=== PATIENT | female | born 1975 | race Caucasian/White ===

== ENCOUNTER → 2019-08-10 12:09 | Outpatient (BNVA) | payer BC, SELFPAY | PROVIDERS: Family Provider Nurse Practitioner Family; PCP Nurse Practitioner Family; Visit Provider Nurse Practitioner Family | DX: I10 Essential (primary) hypertension (principal); E78.5 Hyperlipidemia, unspecified; E03.9 Hypothyroidism, unspecified; F32.9 Major depressive disorder, single episode, unspecified; K21.9 Gastro-esophageal reflux disease without esophagitis | CPT/HCPCS: 80053; 80061; 84443; 85025 ==

== ENCOUNTER 2019-12-20 06:00 | Outpatient (RCR) | payer BC, SELFPAY | END 2020-01-17 23:59 | disposition home or self-care (01) | LOC: TPT 06:00 | PROVIDERS: PCP Nurse Practitioner Family; Referring Provider Nurse Practitioner Family; Visit Provider Nurse Practitioner Family | DX: M54.2 Cervicalgia (principal) | CPT/HCPCS: 97110; 97140; 97161 ==

== ENCOUNTER → 2019-12-29 08:16 | Outpatient (BNVA) | payer BC, SELFPAY | PROVIDERS: PCP Nurse Practitioner Family; Visit Provider Nurse Practitioner Family | DX: I10 Essential (primary) hypertension (principal) | CPT/HCPCS: 80048 ==

== ENCOUNTER 2020-01-18 06:00 | Outpatient (RCR) | payer BC, SELFPAY | END 2020-02-17 23:59 | disposition home or self-care (01) | LOC: TPT 06:00 | PROVIDERS: PCP Nurse Practitioner Family; Referring Provider Nurse Practitioner Family; Visit Provider Nurse Practitioner Family | DX: M54.2 Cervicalgia (principal) | CPT/HCPCS: 97110; 97140 ==

== ENCOUNTER → 2020-01-29 09:00 | Outpatient (BNVA) | payer BC, SELFPAY | PROVIDERS: PCP Nurse Practitioner Family; Visit Provider Nurse Practitioner Family | DX: Z12.39 Encounter for other screening for malignant neoplasm of breast (principal); I10 Essential (primary) hypertension; F32.9 Major depressive disorder, single episode, unspecified; E78.5 Hyperlipidemia, unspecified; E03.9 Hypothyroidism, unspecified; K21.9 Gastro-esophageal reflux disease without esophagitis; R53.83 Other fatigue; Z12.31 Encounter for screening mammogram for malignant neoplasm of breast | CPT/HCPCS: 80053; 80061; 82607; 84443; 85025 ==

== ENCOUNTER → 2020-02-07 09:28 | Outpatient (BNVA) | payer BC, SELFPAY | PROVIDERS: PCP Nurse Practitioner Family; Visit Provider Nurse Practitioner Family | DX: R73.9 Hyperglycemia, unspecified (principal); J01.00 Acute maxillary sinusitis, unspecified; R53.83 Other fatigue; R06.83 Snoring | CPT/HCPCS: 80053; 83036; 83735; 85025 ==

== ENCOUNTER 2020-03-17 11:46 | Emergency (ER) | payer BC, SELFPAY ==
[2020-03-17 11:51] VITALS: BP 132/87; PULSE 82; RESP 20; TEMP 36.2; O2SAT 93; BMI 37.8
--- NOTE | 2020-03-17 11:55 | XRR_ITS ---
PROCEDURE INFORMATION: Exam: XR Chest, 1 View Exam date and time: 03/17/2020 11:56 AM Age: 44 years old Clinical indication: Cough TECHNIQUE: Imaging protocol: XR of the chest Views: Frontal portable upright view of the chest. COMPARISON: No relevant prior studies available. FINDINGS: Lungs: Mild bilateral lateral mid lung zone and bibasilar subsegmental atelectasis/infiltrate. The pulmonary vasculature is normal. Pleural space: No pleural effusion. No pneumothorax. Heart/Mediastinum: The heart is normal in size and contour. Bones/joints: No acute abnormality identified. Organs: The gallbladder is surgically absent, with metallic clips in the gallbladder fossa. XR/XR chest 1V portable [id number] IMPRESSION: 1. Mild bilateral lateral mid lung zone and bibasilar subsegmental atelectasis/infiltrate. Pneumonitis, including viral pneumonitis, is difficult to exclude. Clinical correlation is recommended. 2. Prior cholecystectomy.
--- NOTE | 2020-03-17 12:19 | ED_ITS ---
HPI - COVID General: Chief Complaint: COVID symptoms Stated Complaint: cough,lack of energy, fever Time Seen by Provider: 03/17/20 11:50 Triage information: Has fever, cough or shortness of breath . No known COVID + exposure last 14 days History of Present Illness: HPI Narrative: Presents with cough chills fever not feeling good here lately MD complaint: has COVID symptoms Prior covid testing: no COVID 19 common symptoms: positive fever(s), chills, cough, non-productive cough, dyspnea, fatigue, body aches, loss of sense of smell and/or taste, throat pain, nasal congestion, nausea and diarrhea; negative headache(s) COVID 19 other sytmptoms: negative chest pain Onset (ago): day(s) Severity: mild Treatment prior to arrival: antibiotics and steroids COVID Results: No Data to Display Review of Systems Narrative: Patient has had symptoms for approximately 2 weeks but did not get tested due to extracurricular activities of her high school son Const: Reports: fever(s), chills, body aches and fatigue Eyes: Denies: change in vision or blurry vision ENMT: Reports: throat pain and nasal congestion Card: Denies: chest pain or dyspnea on exertion Resp: Reports: dyspnea and non-productive cough GI: Reports: nausea and diarrhea Musc: Denies: extremity pain Skin/Breast: Denies: rash Neuro: Denies: headache(s) Psych: Denies: anxiety or depression Chicho/Lymph: Denies: easy bruising PFSH ED PFSH: Medical History History of Guillain-Ragland syndrome Hyperlipidemia Hypertension Social History Smoking and tobacco status: never smoked Second hand smoke exposure: No Alcohol intake: never Lives independently: Yes Household members: spouse and children Marital status: History of recent travel: No Current gender identity: Female Physical Exam Const: COMMON NORMALS: no acute distress, average body habitus and patient oriented x3 HENMT: COMMON NORMALS: normocephalic HEAD & SCALP: normal to inspection and normocephalic FACE & SINUS: normal facial exam Eye: COMMON NORMALS: conjunctivae normal GENERAL EYE: appearance normal, both eyes and all related structures CONJUNCTIVA: Yes conjunctivae normal Neck/C-Spine: COMMON NORMALS: no JVD Chest: COMMONS NORMALS: normal inspection of the chest Resp: COMMON NORMALS: normal respiratory effort Cardio: COMMON NORMALS: no JVD GI: INSPECTION: Yes normal to inspection Extremity: COMMON NORMALS: normal to inspection and full ROM Neuro: COMMON NORMALS: patient oriented x3 Course Vital Signs: Vital signs: Vital Signs Temperature 97.2 F L 03/17/20 11:51 Pulse Rate 82 03/17/20 11:51 Respiratory Rate 20 H 03/17/20 11:51 Blood Pressure 132/87 03/17/20 11:51 Pulse Oximetry 93 03/17/20 11:51 MDM - COVID COVID Results: No Data to Display Discharge Plan Discharge Prescriptions: No Action citalopram 20 mg tablet 20 mg PO DAILY 30 Days Qty: 30 RF: 5 fenofibrate 160 mg tablet 160 mg PO DAILY 30 Days Qty: 30 RF: 5 hydrochlorothiazide 25 mg tablet 25 mg PO QAM Qty: 30 RF: 5 levothyroxine 75 mcg tablet 75 mcg PO DAILY 30 Days Qty: 30 RF: 5 omeprazole 20 mg capsule,delayed release(DR/EC) 20 mg PO DAILY 30 Days Qty: 30 RF: 5 cetirizine [Zyrtec] 10 mg tablet 10 mg PO DAILY Qty: 30 RF: 2 fluticasone propionate [Flonase Allergy Relief] 50 mcg/actuation spray,suspension 1 spray INTRANASAL DAILY Qty: 15.8 RF: 1 Coding Level of Care Code ED Geriatric Physical Therapist for Rosalia Inman
[2020-03-17 12:31] VITALS: O2SAT 94
[2020-03-17 12:36] VITALS: BP 123/82; RESP 18; O2SAT 94
[2020-03-18 14:44] LABS: Quest SARS-CoV-2 RNA DETECTED (NOT DETECTED)
== END 2020-03-17 13:05 | disposition home or self-care (01) ==
PROVIDERS: Emergency Provider Nurse Practitioner Family; PCP Nurse Practitioner Family
DX: U07.1 COVID-19 (principal); R50.9 Fever, unspecified; R05 Cough; R06.02 Shortness of breath; I10 Essential (primary) hypertension; E78.5 Hyperlipidemia, unspecified
CPT/HCPCS: 12345; 71045; 87635; 99281; 99283

== ENCOUNTER 2020-04-22 14:44 | Outpatient (CLI) | payer OTHER, SELFPAY ==
--- NOTE | 2020-04-22 15:00 | MM_ITS ---
WS: [id number] BILATERAL SCREENING DIGITAL MAMMOGRAM WITH CAD HISTORY: screening mammo COMPARISON: None available. Bilateral CC and MLO views submitted. Computer aided detection analyzed. Breast composition: There are scattered areas of fibroglandular density. No suspicious masses, microc alcifications or architectural distortion. Benign scattered calcifications in each breast. MM/[place] [id number] IMPRESSION: BI-RADS: 2-Benign FOLLOW UP: 1 Year Follow-up
== END 2020-04-22 14:45 | disposition home or self-care (01) ==
LOC: RADSHAW 14:50
PROVIDERS: PCP Nurse Practitioner Family; Visit Provider Nurse Practitioner Family
DX: Z12.31 Encounter for screening mammogram for malignant neoplasm of breast (principal)
CPT/HCPCS: 77067

== ENCOUNTER → 2020-05-28 11:42 | Outpatient (BNVA) | payer OTHER, SELFPAY | PROVIDERS: PCP Nurse Practitioner Family; Referring Provider Nurse Practitioner Family; Visit Provider Specialist | DX: G43.711 Chronic migraine without aura, intractable, with status migrainosus (principal); F07.81 Postconcussional syndrome | CPT/HCPCS: 99204 ==

== ENCOUNTER 2020-06-17 12:00 | Outpatient (CLI) | payer OTHER, SELFPAY | END 2020-06-19 12:01 | disposition home or self-care (01) | LOC: SLEEP 07-03 15:57 | PROVIDERS: PCP Nurse Practitioner Family; Visit Provider Nurse Practitioner Family | DX: G47.10 Hypersomnia, unspecified (principal); R06.83 Snoring; R53.83 Other fatigue; G47.33 Obstructive sleep apnea (adult) (pediatric) | CPT/HCPCS: G0399 ==

== ENCOUNTER 2020-06-20 12:51 | Outpatient (CLI) | payer OTHER, SELFPAY ==
--- NOTE | 2020-06-20 13:00 | MR_ITS ---
WS: [id number] MRI BRAIN WITHOUT CONTRAST HISTORY: G43.711 - Chronic migraine without aura, intractable, with status migrainosus COMPARISON: 07/26/2008 TECHNIQUE: Diffusion imaging, multiplanar T1, T2 and FLAIR imaging obtained. No evidence for acute infarct or hemorrhage. Jones-white matter differentiation is normal. No remote or acute infarcts are volume loss. Ventricles and extra-axial spaces are normal. No inferior displacement of cerebellar tonsils. The sella turcica and pituitary gland are unremarkabl e. Posterior fossa is also unremarkable. Dural venous sinuses and [place] of [place] demonstrate no abnormality on this unenhanced studies. Paranasal sinuses: Clear. Mastoid air cells: Normal. Calvarium and scalp: Intact. MR/MR head wo con* [id number] IMPRESSION: 1. Unremarkable noncontrast MRI brain.
== END 2020-06-20 12:52 | disposition home or self-care (01) ==
LOC: RADSHAW 12:52
PROVIDERS: PCP Nurse Practitioner Family; Visit Provider Specialist
DX: G43.711 Chronic migraine without aura, intractable, with status migrainosus (principal)
CPT/HCPCS: 70551

== ENCOUNTER → 2020-09-19 13:39 | Outpatient (BNVA) | payer OTHER, SELFPAY | PROVIDERS: PCP Nurse Practitioner Family; Visit Provider Specialist | DX: G43.709 Chronic migraine without aura, not intractable, without status migrainosus (principal) | CPT/HCPCS: 99213; 99214 ==

== ENCOUNTER 2020-10-03 15:05 | Outpatient (CLI) | payer OTHER, SELFPAY ==
--- NOTE | 2020-10-03 15:21 | USCV_ITS ---
Halina Canales Age: 44 Gender: F : 1975 Exam Date: 10/03/2020 15:29 Ordering Phys: Marianne Kirk INSECTICIDE SUPERVISOR Technologist: Dia Vickers Exam Location: [facility] [place] Indication: PAIN IN LT CALF HISTORY: Pain in lt calf PROCEDURES: Venous duplex imaging was performed in only the left lower extremity. The following venous structures were evaluated: common femoral vein, profunda vein, proximal portion of the greater saphenous vein, superficial femoral vein, and the popliteal vein. In addition, the posterior tibial and peroneal trunk were evaluated. Serial compression, augmentation maneuvers, and spectral Doppler flow evaluation were performed. FINDINGS: Normal 2-D Doppler and augmentation and compressibility throughout the lower extremity venous structures. Additional imaging through the proximal calf veins also reveals no thrombus. Limited evaluation of the greater saphenous vein is patent with no thrombus.. CONCLUSIONS No evidence of left lower extremity DVT. Lebron Haro MD (Electronically Signed) Final Date: 03 October 2020 17:34 S
== END 2020-10-03 15:06 | disposition home or self-care (01) ==
LOC: RAD 15:10
PROVIDERS: PCP Nurse Practitioner Family; Visit Provider Nurse Practitioner Family
DX: M79.662 Pain in left lower leg (principal)
CPT/HCPCS: 93971

== ENCOUNTER → 2020-11-20 09:32 | Outpatient (BNVA) | payer OTHER, MEDICAID, SELFPAY | PROVIDERS: PCP Nurse Practitioner Family; Visit Provider Nurse Practitioner Family | DX: M25.522 Pain in left elbow (principal); M25.429 Effusion, unspecified elbow; M25.621 Stiffness of right elbow, not elsewhere classified; M25.421 Effusion, right elbow; M77.8 Other enthesopathies, not elsewhere classified | CPT/HCPCS: 73080 ==

== ENCOUNTER → 2020-11-27 09:19 | Outpatient (BNVA) | payer OTHER, SELFPAY | PROVIDERS: PCP Nurse Practitioner Family; Visit Provider Nurse Practitioner Family | DX: R53.83 Other fatigue (principal); I10 Essential (primary) hypertension; R73.9 Hyperglycemia, unspecified; E78.5 Hyperlipidemia, unspecified; E03.9 Hypothyroidism, unspecified; G47.33 Obstructive sleep apnea (adult) (pediatric); F32.9 Major depressive disorder, single episode, unspecified; K21.9 Gastro-esophageal reflux disease without esophagitis; D64.9 Anemia, unspecified | CPT/HCPCS: 80053; 80061; 82306; 82607; 82728; 82746; 83036; 83550; 83721; 84443; 85025 ==

== ENCOUNTER → 2020-12-09 09:54 | Outpatient (BNVA) | payer OTHER, SELFPAY | PROVIDERS: PCP Nurse Practitioner Family; Visit Provider Nurse Practitioner Family | DX: D64.9 Anemia, unspecified (principal); E78.5 Hyperlipidemia, unspecified; E11.65 Type 2 diabetes mellitus with hyperglycemia; E55.9 Vitamin D deficiency, unspecified; E53.8 Deficiency of other specified B group vitamins; D50.9 Iron deficiency anemia, unspecified | CPT/HCPCS: 85025 ==

== ENCOUNTER 2020-12-10 15:40 | Outpatient (CLI) | payer OTHER, MEDICAID, SELFPAY ==
--- NOTE | 2020-12-10 16:00 | MR_ITS ---
WS: [id number] MRI OF THE RIGHT ELBOW WITHOUT GADOLINIUM ENHANCEMENT. INDICATION: Right elbow pain for 3 weeks TECHNIQUE: Axial T1, axial T2, coronal T1, coronal PD, coronal STIR, sagittal PD fat sat, 3-D FSPGR FINDINGS: Distal humerus is normal in appearance. Normal radial head and neck. Incidental fatty marro w changes in the proximal radius. Normal trochlea and olecranon. Normal olecranon fossa. Thickening with edema involving the common extensor tendon origin with fluid superficial and deep to the tendon. Associated edema at the common extensor tendon origin. Findings compatible extensor tendi nopathy (lateral epicondylitis). Radial collateral ligament appears intact. Normal appearing common f lexor tendon. Normal distal biceps tendon. MR/MR elbow RT wo con* [id number] IMPRESSION: 1. Thickening of the common extensor tendon with a small amount of fluid and e bouchra compatible with extensor tendinopathy. Radial collateral ligament appears intact. 2. Normal common flexor tendon. 3. Distal humerus is normal in appearance. No acute fractures. 4. Normal radial head and neck.
== END 2020-12-10 15:41 | disposition home or self-care (01) ==
LOC: RADSHAW 15:44
PROVIDERS: PCP Nurse Practitioner Family; Visit Provider Nurse Practitioner Family
DX: M25.521 Pain in right elbow (principal); M79.89 Other specified soft tissue disorders
CPT/HCPCS: 73221

== ENCOUNTER → 2020-12-16 15:20 | Outpatient (BNVA) | payer OTHER, SELFPAY | PROVIDERS: PCP Nurse Practitioner Family; Visit Provider Nurse Practitioner Family | DX: D50.9 Iron deficiency anemia, unspecified (principal) | CPT/HCPCS: 82270 ==

== ENCOUNTER → 2021-03-24 09:36 | Outpatient (BNVA) | payer OTHER, MEDICAID, SELFPAY | PROVIDERS: PCP Nurse Practitioner Family; Visit Provider Specialist | DX: G43.809 Other migraine, not intractable, without status migrainosus (principal) | CPT/HCPCS: 99213 ==

== ENCOUNTER → 2021-05-28 09:49 | Outpatient (BNVA) | payer OTHER, MEDICAID, SELFPAY | PROVIDERS: PCP Nurse Practitioner Family; Visit Provider Nurse Practitioner Family | DX: I10 Essential (primary) hypertension (principal); E55.9 Vitamin D deficiency, unspecified; E11.65 Type 2 diabetes mellitus with hyperglycemia; Z12.31 Encounter for screening mammogram for malignant neoplasm of breast; E53.8 Deficiency of other specified B group vitamins; F32.9 Major depressive disorder, single episode, unspecified; E03.9 Hypothyroidism, unspecified; K21.9 Gastro-esophageal reflux disease without esophagitis; E78.5 Hyperlipidemia, unspecified; B37.3 Candidiasis of vulva and vagina | CPT/HCPCS: 80053; 80061; 81003; 82306; 82607; 83036; 83721; 84443; 85025 ==

== ENCOUNTER → 2021-06-16 08:32 | Outpatient (BNVA) | payer OTHER, MEDICAID, SELFPAY | PROVIDERS: PCP Nurse Practitioner Family; Visit Provider Nurse Practitioner Family | DX: E87.1 Hypo-osmolality and hyponatremia (principal) | CPT/HCPCS: 80048 ==

== ENCOUNTER → 2021-08-18 10:22 | Outpatient (BNVA) | payer OTHER, SELFPAY | PROVIDERS: PCP Nurse Practitioner Family; Visit Provider Nurse Practitioner Family | DX: R05.9 Cough, unspecified (principal); J40 Bronchitis, not specified as acute or chronic; J32.0 Chronic maxillary sinusitis; Z13.9 Encounter for screening, unspecified; Z11.52 Encounter for screening for COVID-19 | CPT/HCPCS: 87635 ==

== ENCOUNTER → 2021-08-26 12:01 | Outpatient (BNVA) | payer OTHER, MEDICAID, SELFPAY | PROVIDERS: PCP Nurse Practitioner Family; Referring Provider Nurse Practitioner Family; Visit Provider Nurse Practitioner Women's Health | DX: N93.9 Abnormal uterine and vaginal bleeding, unspecified (principal); Z12.4 Encounter for screening for malignant neoplasm of cervix; N39.3 Stress incontinence (female) (male) | CPT/HCPCS: 84443; 85025; 87624 ==

== ENCOUNTER → 2021-10-08 11:30 | Outpatient (BNVA) | payer OTHER, MEDICAID, SELFPAY | PROVIDERS: PCP Nurse Practitioner Family; Visit Provider Nurse Practitioner Family | DX: E11.9 Type 2 diabetes mellitus without complications (principal); E03.9 Hypothyroidism, unspecified; E55.9 Vitamin D deficiency, unspecified; K21.9 Gastro-esophageal reflux disease without esophagitis; F32.9 Major depressive disorder, single episode, unspecified; I10 Essential (primary) hypertension; E78.5 Hyperlipidemia, unspecified; M54.42 Lumbago with sciatica, left side; G89.29 Other chronic pain; M25.551 Pain in right hip | CPT/HCPCS: 80053; 80061; 83036; 84443 ==

== ENCOUNTER 2021-12-18 07:44 | Outpatient (CLI) | payer OTHER, MEDICAID, SELFPAY ==
--- NOTE | 2021-12-18 07:51 | MM_ITS ---
WS: [id number] VIEWS: MLO and CC views both breasts. 3D digital tomosynthesis is also included in this exam. Comparison made with prior exam of 04/22/2020. Findings: There was no sign of mass, architectural distortion or suspicious calcification in either breast. Sc attered fibroglandular densities MM/[place] [id number] Impression: BI-RADS: 2-Benign FOLLOW-UP: 1 Year Follow-up This mammogram was also analyzed by the Computer Aided Detection System R2 Imag e Assistant Director Of Public Works.
== END 2021-12-18 07:45 | disposition home or self-care (01) ==
LOC: RAD 07:46
PROVIDERS: PCP Nurse Practitioner Family; Visit Provider Nurse Practitioner Family
DX: Z12.31 Encounter for screening mammogram for malignant neoplasm of breast (principal)
CPT/HCPCS: 77063; 77067

== ENCOUNTER → 2022-04-14 12:32 | Outpatient (BNVA) | payer OTHER, MEDICAID, SELFPAY | PROVIDERS: PCP Nurse Practitioner Family; Visit Provider Nurse Practitioner Family | DX: E55.9 Vitamin D deficiency, unspecified (principal); E11.9 Type 2 diabetes mellitus without complications; E03.9 Hypothyroidism, unspecified; I10 Essential (primary) hypertension; K21.9 Gastro-esophageal reflux disease without esophagitis; E53.8 Deficiency of other specified B group vitamins; E78.5 Hyperlipidemia, unspecified | CPT/HCPCS: 80053; 80061; 82306; 83036; 84443 ==

== ENCOUNTER → 2022-07-16 08:49 | Outpatient (BNVA) | payer OTHER, MEDICAID, SELFPAY | PROVIDERS: PCP Nurse Practitioner Family; Visit Provider Nurse Practitioner Family | DX: J32.0 Chronic maxillary sinusitis (principal); E11.9 Type 2 diabetes mellitus without complications; K21.9 Gastro-esophageal reflux disease without esophagitis; E03.9 Hypothyroidism, unspecified; E78.5 Hyperlipidemia, unspecified; I10 Essential (primary) hypertension; J30.2 Other seasonal allergic rhinitis; R05.9 Cough, unspecified; E11.65 Type 2 diabetes mellitus with hyperglycemia | CPT/HCPCS: 80053; 80061; 83036 ==

== ENCOUNTER → 2022-12-10 16:36 | Outpatient (BNVA) | payer MEDICAID, SELFPAY | PROVIDERS: PCP Nurse Practitioner Family; Visit Provider Nurse Practitioner Family | DX: E11.9 Type 2 diabetes mellitus without complications (principal); E78.5 Hyperlipidemia, unspecified; E03.9 Hypothyroidism, unspecified; I10 Essential (primary) hypertension; K21.9 Gastro-esophageal reflux disease without esophagitis | CPT/HCPCS: 80053; 80061; 83036 ==

== ENCOUNTER → 2023-01-26 10:28 | Outpatient (BNVA) | payer MEDICAID, SELFPAY | PROVIDERS: PCP Nurse Practitioner Family; Referring Provider Nurse Practitioner Family; Visit Provider Specialist | DX: G31.84 Mild cognitive impairment of uncertain or unknown etiology (principal); R29.90 Unspecified symptoms and signs involving the nervous system; G43.711 Chronic migraine without aura, intractable, with status migrainosus | CPT/HCPCS: 0346U; 36415; 82542; 82607; 82746 ==

== ENCOUNTER 2023-02-23 07:35 | Outpatient (CLI) | payer MEDICAID, SELFPAY ==
--- NOTE | 2023-02-23 08:00 | MR_ITS ---
WS: [id number] MRI HEAD WITHOUT CONTRAST TECHNIQUE: Sagittal T1, T2 axial, T2 axial FLAIR, axial and coronal T1 images, axial susceptibility w eighted imaging, axial diffusion weighted images, and coronal T2 images were obtained. CLINICAL INFORMATION: G31.84 - Mild cognitive impairment of uncertain or unknow... COMPARISON: 06/20/2020 MRI FINDINGS: No evidence of restricted diffusion to suggest acute ischemia. Ventricular system and basilar cistern s are patent. No suspicious intracranial signal normalities. Normal ontiveros-white differentiation. Frieda l posterior fossa. Normal vascular flow voids at the skull base. No extra-axial fluid collections. Mi ld mucosal thickening of the paranasal sinuses. Mastoid air cells are well aerated. No hemosiderin on the susceptibly weighted images. Normal optic chiasm and pituitary infundibulum. Temporal lobes and hippocampal formations are normal in appearance. IMPRESSION: 1. No evidence of restricted diffusion to suggest acute ischemia. 2. No suspicious intracranial signal normalities. 3. No hemosiderin on the susceptibly weighted images. 4. No other suspicious findings. No significant changes compared to previous
== END 2023-02-23 07:36 | disposition home or self-care (01) ==
LOC: RAD 07:35
PROVIDERS: PCP Nurse Practitioner Family; Visit Provider Specialist
DX: G31.84 Mild cognitive impairment of uncertain or unknown etiology (principal)
CPT/HCPCS: 70551

== ENCOUNTER → 2023-03-15 11:50 | Outpatient (BNVA) | payer MEDICAID, SELFPAY | PROVIDERS: PCP Nurse Practitioner Family; Visit Provider Nurse Practitioner Family | DX: E03.9 Hypothyroidism, unspecified (principal); I10 Essential (primary) hypertension; F32.9 Major depressive disorder, single episode, unspecified; E11.9 Type 2 diabetes mellitus without complications; E78.5 Hyperlipidemia, unspecified; K21.9 Gastro-esophageal reflux disease without esophagitis | CPT/HCPCS: 80053; 80061; 83036; 84443 ==

== ENCOUNTER → 2024-01-03 14:41 | Outpatient (BNVA) | payer MEDICAID, SELFPAY | PROVIDERS: PCP Nurse Practitioner Family; Visit Provider Nurse Practitioner Family | DX: I10 Essential (primary) hypertension (principal); E78.5 Hyperlipidemia, unspecified; E11.65 Type 2 diabetes mellitus with hyperglycemia; E03.9 Hypothyroidism, unspecified | CPT/HCPCS: 80053; 80061; 83036; 84443; 85025 ==

== ENCOUNTER → 2024-01-31 15:03 | Outpatient (BNVA) | payer MEDICAID, SELFPAY | PROVIDERS: Visit Provider Nurse Practitioner Family | DX: R50.9 Fever, unspecified (principal) | CPT/HCPCS: 87400; 87426 ==

== ENCOUNTER 2024-02-08 13:50 | Outpatient (CLI) | payer MEDICAID, SELFPAY | END 2024-02-08 13:51 | disposition home or self-care (01) | LOC: SLEEP 13:52 | PROVIDERS: PCP Nurse Practitioner Family; Visit Provider Nurse Practitioner Family | DX: G47.33 Obstructive sleep apnea (adult) (pediatric) (principal); R63.4 Abnormal weight loss | CPT/HCPCS: G0399 ==

== ENCOUNTER → 2024-02-11 16:08 | Outpatient (BNVA) | payer MEDICAID, SELFPAY | PROVIDERS: Visit Provider Nurse Practitioner Family | DX: N39.498 Other specified urinary incontinence (principal) | CPT/HCPCS: 81000 ==

== ENCOUNTER → 2024-02-15 14:35 | Outpatient (BNVA) | payer MEDICAID, SELFPAY | PROVIDERS: Visit Provider Specialist | DX: G30.9 Alzheimer's disease, unspecified; F02.80 Dementia in other diseases classified elsewhere, unspecified severity, without behavioral disturbance, psychotic disturbance, mood disturbance, and anxiety; F32.9 Major depressive disorder, single episode, unspecified; R29.90 Unspecified symptoms and signs involving the nervous system; G47.33 Obstructive sleep apnea (adult) (pediatric) | CPT/HCPCS: 96116; 99214 ==

== ENCOUNTER → 2024-04-21 12:01 | Outpatient (BNVA) | payer MEDICAID, SELFPAY | PROVIDERS: PCP Nurse Practitioner Family; Visit Provider Nurse Practitioner Family | DX: E11.65 Type 2 diabetes mellitus with hyperglycemia (principal) | CPT/HCPCS: 80053; 80061; 82306; 82607; 83036; 83735; 84439; 84443; 85025 ==

== ENCOUNTER 2024-04-27 12:45 | Outpatient (CLI) | payer MEDICAID, SELFPAY ==
--- NOTE | 2024-04-27 12:45 | USCV_ITS ---
Halina Canales Age: 48 Gender: F : 1975 Exam Date: 04/27/2024 12:57 Ordering Phys: Marianne Kirk CLINICAL REHABILITATION AIDE Technologist: R Exam Location: [facility] [place]_ Indication: pain HISTORY: Lower extremity pain. PROCEDURES: Venous duplex imaging was performed in only the left lower extremity. The following venous structures were evaluated: common femoral vein, profunda vein, proximal portion of the greater saphenous vein, superficial femoral vein, and the popliteal vein. In addition, the posterior tibial and peroneal trunk were evaluated. FINDINGS: Normal 2-D Doppler and augmentation and compressibility throughout the lower extremity venous structures. Additional imaging through the proximal calf veins also reveals no thrombus. Limited evaluation of the greater saphenous vein is patent with no thrombus. CONCLUSIONS No DVT left lower extremity. Dr. Rena Mccann DO (Electronically Signed) Final Date: 27 April 2024 14:42 S
== END 2024-04-27 12:50 | disposition home or self-care (01) ==
PROVIDERS: PCP Nurse Practitioner Family; Visit Provider Nurse Practitioner Family
DX: M79.662 Pain in left lower leg (principal)
CPT/HCPCS: 93971

== ENCOUNTER 2024-05-16 08:39 | Outpatient (CLI) | payer MEDICAID, SELFPAY ==
--- NOTE | 2024-05-16 09:00 | MM_ITS ---
WS: [id number] VIEWS: MLO and CC views both breasts. 3D digital tomosynthesis is also included in this exam. Comparison made with prior exam of 04/22/2020, 12/18/2021.. Findings: There are scattered areas of fibroglandular density. No sign of suspicious mass, tumor calcification or architectural distortion. MM/MM scr BI tomosynthesis [id number] Impression: BI-RADS: 2 - Benign FOLLOW-UP: 1 Year Follow-up This mammogram was also analyzed by the Computer Aided Detection System R2 Imag e Nutrition Consultant.
== END 2024-05-16 08:40 | disposition home or self-care (01) ==
LOC: RAD 08:40
PROVIDERS: PCP Nurse Practitioner Family; Visit Provider Nurse Practitioner Family
DX: Z12.31 Encounter for screening mammogram for malignant neoplasm of breast (principal); R92.323 Mammographic fibroglandular density, bilateral breasts
CPT/HCPCS: 77063; 77067

== ENCOUNTER → 2024-06-30 11:26 | Outpatient (BNVA) | payer MEDICAID, SELFPAY | PROVIDERS: PCP Nurse Practitioner Family; Visit Provider Nurse Practitioner Family | DX: I10 Essential (primary) hypertension (principal); E11.65 Type 2 diabetes mellitus with hyperglycemia; D50.9 Iron deficiency anemia, unspecified | CPT/HCPCS: 80053; 82306; 82607; 82746; 83550; 83735; 84443; 85025; 86618; 86666; 86757 ==

== ENCOUNTER 2024-07-25 14:59 | Outpatient (CLI) | payer MEDICAID, SELFPAY ==
--- NOTE | 2024-07-25 15:30 | USR_ITS ---
PROCEDURE INFORMATION: Exam: US Pelvis Transabdominal, Complete, and US Pelvis Transvaginal, Non-obstetric Exam date and time: 07/25/2024 3:29 PM Age: 48 years old Clinical indication: Other: Vaginal dryness; Additional info: N95.1 - menopausal and female climacteric states TECHNIQUE: Imaging protocol: Real-time complete transabdominal and transvaginal pelvic ultrasound (non-obstetric) with image documentation. Transvaginal imaging was used for better evaluation of the endometrium, adnexa, and/or cervix. COMPARISON: CT kidney stone [id number] 07/25/2017 1:33 PM FINDINGS: Uterus: Uterus is somewhat heterogeneous and enlarged measuring 7.4 x 9.6 x 6.0 cm. Normal endometrial thickness at 2 mm. No endometrial defect. Small hypoechoic exophytic lesion off the left posterolateral aspect of the uterus suggests a fibroid measuring 1.8 cm. Right ovary/adnexa: Right ovary is not visualized. Left ovary/adnexa: Left ovary is enlarged measuring 3.9 x 2.5 x 4.5 cm. Numerous cystic structures within the left ovary consistent with cysts or follicles. Largest measures 1.8 cm. Low-level internal echoes are seen in many of the lesions. Intraperitoneal space: No free pelvic fluid. Urinary bladder: Normal. US/US pelv w/transvag [id number] IMPRESSION: 1. Enlarged and somewhat heterogeneous uterus. 2. Probable small subserosal uterine fibroid. 3. Enlarged left ovary containing multiple simple and complex cysts or follicles. Consider follow-up ultrasound in 8-12 weeks.
== END 2024-07-25 15:00 | disposition home or self-care (01) ==
LOC: RAD 15:00
PROVIDERS: PCP Nurse Practitioner Family; Visit Provider Nurse Practitioner Family
DX: N95.1 Menopausal and female climacteric states (principal); N85.2 Hypertrophy of uterus; R93.89 Abnormal findings on diagnostic imaging of other specified body structures; N83.8 Other noninflammatory disorders of ovary, fallopian tube and broad ligament
CPT/HCPCS: 76830; 76856

== ENCOUNTER 2024-09-08 11:50 | Outpatient (CLI) | payer MEDICAID, SELFPAY ==
--- NOTE | 2024-09-08 12:45 | US_ITS ---
WS: [id number] US pelv w/transvag [id number] HISTORY: N85.2 - Hypertrophy of uterus COMPARISON: None available. Uterus: 13.1 cm x 7.3 cm x 6.1 cm. Enlarged anteverted uterus. There is a very dense appearing uterus with heterogeneity and nodularity. There is a large echogenic mass with central fluid measuring 5.4 x 4.1 cm in the central uterus. Portion of the endometrium looks like it's being displaced. I suspect this is a large fibroid. Endometrium: 1.0 cm. Poorly visualized entire endometrium. Right ovary: Not identified. No adnexal mass.. Left ovary: 4.6 cm x 4.0 cm x 3.2 cm. Numerous small follicles. Largest follicle measures 2.5 cm. No free fluid in the cul-de-sac. US/US pelv w/transvag [id number] IMPRESSION: 1. Ultrasound evaluation of the uterus is limited. 2. Enlarged uterus with dense fibrotic appearing masses most likely these are fibroids but a normal endometrium cannot be identified is in its entirety. A jiménez spect the endometrium is being displaced by fibroids. Largest fibroid in the ce ntral uterus measures 5.4 x 4.1 cm. Recommend surgical evaluation by HAZARDOUS WASTE TECHNICIAN. 3. Numerous small LEFT ovarian follicles. 4. RIGHT ovary not identified.
== END 2024-09-08 11:51 | disposition home or self-care (01) ==
PROVIDERS: PCP Nurse Practitioner Family; Visit Provider Nurse Practitioner Family
DX: N85.2 Hypertrophy of uterus (principal); R93.89 Abnormal findings on diagnostic imaging of other specified body structures
CPT/HCPCS: 76830; 76856

== ENCOUNTER 2024-11-02 05:53 | Day surgery (SDC) | payer MEDICAID, SELFPAY ==
[2024-11-02] VITALS (10 sets, daily range): BP systolic 107–134; BP diastolic 74–84; PULSE 54–85; RESP 12–18; TEMP 36.1–36.9; O2SAT 94–98
--- NOTE | 2024-11-02 02:47 | W.PM.OPSFHP ---
Same Day Surgery H&P Indication for Procedure/HPI DATE OF PROCEDURE: November 02, 2024 CHIEF COMPLAINT/INDICATIONFOR SURGICAL PROCEDURE: abnormal uterine bleeding PREOP DIAGNOSIS: abnormal uterine bleeding PLANNED PROCEDURE: Operation Date: 11/02/24 07:00 Proposed Procedures p Hysteroscopy Hysteroscopy w/ Endometrial Sampling(Not Applicable) - Alfredito Monteiro MD s Poylpectomy endometrial(Not Applicable) - Alfredito Monteiro MD s Excision Tissue Cervix Loop Electrosurgical Excision Procedure (LEEP)(Not Applicable) - Alfredito Monteiro MD Medications/Allergies* Home Medications ?Medication ?Instructions ?Recorded ?Confirmed ?Type citalopram 20 mg tablet 20 mg PO DAILY 10/30/24 11/01/24 History dulaglutide 0.75 mg/0.5 mL 0.75 mg SUBCUT .WEEK 10/30/24 11/01/24 History subcutaneous pen injector (Trulicity) hydrochlorothiazide 25 mg tablet 25 mg PO DAILY 10/30/24 11/01/24 History levothyroxine 100 mcg tablet 100 mcg PO DAILY 10/30/24 11/01/24 History sumatriptan succinate 100 mg 100 mg PO DIRECTED 10/30/24 11/01/24 History tablet (Imitrex) Allergies/Adverse Reactions Allergy/AdvReac Type Severity Reaction Status Date / Time No Known Allergies Allergy Verified 11/01/24 14:41 Pertinent History/Comorbid Conditions* Medical History (Updated 10/08/24 @ 01:12 by Alfredito Monteiro MD) No pertinent past medical history neghx:dvt/pe PCP: Caroline Kirk Chronic low back pain with left-sided sciatica Iron deficiency anemia Vitamin B12 deficiency Vitamin D deficiency Type 2 diabetes mellitus Tendinitis of right elbow BRIDGER (obstructive sleep apnea) GERD (gastroesophageal reflux disease) Depression History of Guillain-Lansing syndrome Hypothyroid Hypertension Hyperlipidemia Surgical History (Updated 08/26/21 @ 11:16 by Cynthia Hernandez APN, LOPEZ) Hx of section x2 01/06/2002, Cephalopelvic disproportion, Arrest of descent. Performed by Dr. Jerald Jimenez [facility] in [place], [place]. 07/17/2008 Repeat section. Performed by Dr. Jerald Jimenez at [facility] in [place], [place] Hx of lithotripsy (~06/14/06) Right renal calculus. Performed by Dr. Dhillon at [facility] in [place], [place]. Hx of cholecystectomy (~12/19/09) Laparoscopic. Performed by Dr. Jensen Goldberg at [facility] in [place], [place]. Family History (Updated 08/26/21 @ 10:55 by Torri Hernandez) Heart disease Father Hypertension Grandmother Maternal Grandfather Maternal Denies family history of Colon cancer Ovarian cancer Diabetes Hypercholesteremia Breast cancer Uterine cancer Thyroid disease Stroke Social History Smoking and tobacco/nicotine status: never used tobacco/nicotine Substance/Drug Use: never Pertinent Exam Findings alert, oriented x 3, clear to auscultation bilaterally and regular rate & rhythm Recommendations Surgery/Procedure today Coding Level of Care Code Acute Code for Chg Fwd
--- NOTE | 2024-11-02 06:12 | P.ANESASSM_ITS ---
Pre-Anesthetic Assessment Height/Weight: Height 5 ft 4.5 in Preop Diagnosis: abnormal uterine bleeding Operation Date: 11/02/24 07:00 Proposed Procedures p Hysteroscopy Hysteroscopy w/ Endometrial Sampling(Not Applicable) - Alfredito Monteiro MD s Poylpectomy endometrial(Not Applicable) - Alfredito Monteiro MD s Excision Tissue Cervix Loop Electrosurgical Excision Procedure (LEEP)(Not Applicable) - Alfredito Monteiro MD Was Beta Cheryl taken within 24 hours: N/A Was Clonidine taken within 24 hours: N/A Social No alcohol and No tobacco Exam alert, oriented x 3, clear to auscultation bilaterally and regular rate & rhythm Airway Submandibular: within normal limits Cervical ROM: within normal limits Mallampati: Class III Dentition: full Anesthetic Plan ASA status: 3 Anesthesia: General Other: No prior issues with anesthesia NPO since yesterday evening Patient's is at bedside and states patient has dementia however patient is ANO x 3 History of hypertension on hydrochlorothiazide BRIDGER, no CPAP Hypothyroidism on Synthroid Type 2 diabetes, on Trulicity. Last taken 10/25/2024 Plan for general anesthesia Medications/Allergies Home Medications ?Medication ?Instructions ?Recorded ?Confirmed ?Last Taken ?Type auto titrating cpap 6-14cm and #1 ea 07/10/20 09/22/24 Unknown Rx supplies oxybutynin chloride 5 mg 5 mg PO DAILY #90 tabs 06/3011/01/24 11/01/24 Rx tablet,extended release 24 hr galantamine 12 mg tablet 12 mg PO BID #180 tabs 09/1411/01/24 11/01/24 Rx memantine 10 mg tablet 10 mg PO BID #180 tabs 09/1411/01/24 11/01/24 Rx citalopram 20 mg tablet 20 mg PO DAILY 10/30/24 0710/1111/01/24 History dulaglutide 0.75 mg/0.5 mL 0.75 mg SUBCUT .WEEK 11/01/24 10/26/24 History subcutaneous pen injector (Trulicity) hydrochlorothiazide 25 mg tablet 25 mg PO DAILY 11/01/24 11/01/24 History levothyroxine 100 mcg tablet 100 mcg PO DAILY 10/30/24 11/01/24 11/01/24 History sumatriptan succinate 100 mg 100 mg PO DIRECTED 11/01/24 Unknown History tablet (Imitrex) Allergies Allergy/AdvReac Type Severity Reaction Status Date / Time No Known Allergies Allergy Verified 11/02/24 06:22 [facility] Anesthesia Medical History (Updated 10/08/24 @ 01:12 by Aflredito Monteiro MD) No pertinent past medical history neghx:dvt/pe PCP: Caroline Kirk Chronic low back pain with left-sided sciatica Iron deficiency anemia Vitamin B12 deficiency Vitamin D deficiency Type 2 diabetes mellitus Tendinitis of right elbow BRIDGER (obstructive sleep apnea) GERD (gastroesophageal reflux disease) Depression History of Guillain-Goldston syndrome Hypothyroid Hypertension Hyperlipidemia Surgical History Hx of section x2 01/06/2002, Cephalopelvic disproportion, Arrest of descent. Performed by Dr. Jerald Jimenez [facility] in [place], [place]. 07/17/2008 Repeat section. Performed by Dr. Jerald Jimenez at [facility] in [place], [place] Hx of lithotripsy (~06/14/06) Right renal calculus. Performed by Dr. Dhillon at [facility] in [place], [place]. Hx of cholecystectomy (~12/19/09) Laparoscopic. Performed by Dr. Jensen Goldberg at [facility] in [place], [place]. Family History Father Heart disease Grandmother Hypertension Maternal Grandfather Hypertension Maternal Denies family history of Colon cancer Ovarian cancer Diabetes Hypercholesteremia Breast cancer Uterine cancer Thyroid disease Stroke Social History Smoking and tobacco/nicotine status: never used tobacco/nicotine Substance/Drug Use: never Female Reproductive History Date of last menstrual period: 07/04/24
[2024-11-02 06:27] LABS: OR HCG Qualitative Urine Negative (Negative)
--- NOTE | 2024-11-02 07:06 | W.PM.OPSUD ---
Surgery/Procedure H&P Update DATE OF PROCEDURE: November 02, 2024 DATE H&P PERFORMED: 11/02/24 H&P UPDATE INFORMATION: I have reviewed H&P completed within last 30 days, I have examined patient prior to procedure and Changes to prior documentation as noted here CHANGES TO PREVIOUS DOCUMENTATION: patient also scheduled for electrosurgical loop excision of the cervix due to abnormal pap PREOP DIAGNOSIS: abnormal uterine bleeding PLANNED PROCEDURE: Operation Date: 11/02/24 07:00 Proposed Procedures p Hysteroscopy Hysteroscopy w/ Endometrial Sampling(Not Applicable) - Alfredito Monteiro MD s Poylpectomy endometrial(Not Applicable) - Alfredito Monteiro MD s Excision Tissue Cervix Loop Electrosurgical Excision Procedure (LEEP)(Not Applicable) - Alfredito Monteiro MD
--- NOTE | 2024-11-02 09:11 | ANE.PACU2 ---
Inpatient post-anesthesia follow up: Vital signs: Temperature 97 F Pulse Rate 69 Respiratory Rate 16 Blood Pressure 108/74 Pulse Oximetry 95 Oxygen Delivery Me thod Room Air Oxygen Flow Rate Fraction of Inspir ed Oxygen
--- NOTE | 2024-11-02 10:45 | PM.OP ---
Operative Report Date of procedure: November 02, 2024 Pre-op diagnosis: abnormal uterine bleeding abnormal pap Post-op diagnosis: same Post-op findings: uterus sounded to 8 cm Endometrial cavity normal Minimal endometrial tissue No polyps or fibroids Normal cervix Procedure done: hysteroscopy Curettage of uterus Electrosurgical loop excision of the cervix Implants: none Specimens removed/disposition: endometrial curettings cervical tissue Surgeon: Alfredito Monteiro MD Anesthesia: MAC Estimated blood loss (mL): 0 Complications: none Findings: see above Condition: stable Disposition: PACU Brief History: 49 y.o. with abnormal uterine bleeding and abnormal pap Procedure: Informed consent signed. Patient was taken to the operating room. Anesthesia was induced. Patient was placed in dorsolithotomy position, prepped and draped for hysteroscopy. A bivalve speculum was placed in the vagina. The anterior lip of the cervix was grasped with a sharp-toothed tenaculum. The cervix was serially dilated with Hegar dilators. A hysteroscope was placed into the endometrial cavity. The endometrial cavity was seen to be normal. There were no polyps or fibroids. There was small amount of endometrial tissue. The hysteroscope was then removed. Endometrial curettage was done with a sharp curette. Endometrial tissue was sent to pathology. The cervix was then infiltrated at the cervicovaginal junction with 20 U of vasopressin to decrease bleeding. Electrosurgical loop excision of the cervix was done to a depth of approximately 5 mm. No bleeding was seen. Excellent hemostasis was noted. All instruments were then removed. The patient was placed supine, awakened, and taken to the recovery room. Postoperative condition: stable EBL: 0 cc Complications: none Sponge and instrument counts were correct x two
== END 2024-11-02 09:11 | disposition home or self-care (01) ==
PROVIDERS: Student in an Organized Health Care Education/Training Program; PCP Nurse Practitioner Family; Visit Provider Obstetrics & Gynecology
PROC: 0UJD8ZZ Inspection of Uterus and Cervix, Via Natural or Artificial Opening Endoscopic (ICD-10-PCS; CPT 58555; principal; 2024-11-02 07:00)
PROC: (CPT 58558; 2024-11-02 07:00)
PROC: (CPT 58558; 2024-11-02 07:00)
DX: N93.9 Abnormal uterine and vaginal bleeding, unspecified (principal); D50.9 Iron deficiency anemia, unspecified; E11.9 Type 2 diabetes mellitus without complications; G47.33 Obstructive sleep apnea (adult) (pediatric); K21.9 Gastro-esophageal reflux disease without esophagitis; F32.A Depression, unspecified; E03.9 Hypothyroidism, unspecified; I10 Essential (primary) hypertension; E78.5 Hyperlipidemia, unspecified
CPT/HCPCS: 58558; 57522; 36416; 81025; 82962; 88305; J1100; J1885; J2250; J2405; J2704; J3010; J3490; J7030; J9999

== ENCOUNTER → 2024-12-11 09:25 | Outpatient (BNVA) | payer MEDICAID, SELFPAY | PROVIDERS: PCP Nurse Practitioner Family; Visit Provider Specialist | DX: G30.9 Alzheimer's disease, unspecified (principal); F02.80 Dementia in other diseases classified elsewhere, unspecified severity, without behavioral disturbance, psychotic disturbance, mood disturbance, and anxiety; F32.9 Major depressive disorder, single episode, unspecified; G43.711 Chronic migraine without aura, intractable, with status migrainosus | CPT/HCPCS: 99214 ==

== ENCOUNTER → 2025-01-25 15:13 | Outpatient (BNVA) | payer MEDICAID, SELFPAY | PROVIDERS: PCP Nurse Practitioner Family; Visit Provider Nurse Practitioner Family | DX: R53.83 Other fatigue (principal); R39.9 Unspecified symptoms and signs involving the genitourinary system | CPT/HCPCS: 80053; 81000; 82306; 82607; 83540; 84443; 85025; 87426 ==

== ENCOUNTER → 2025-02-13 15:00 | Outpatient (BNVA) | payer MEDICAID, SELFPAY | PROVIDERS: PCP Nurse Practitioner Family; Visit Provider Nurse Practitioner Family | DX: E11.65 Type 2 diabetes mellitus with hyperglycemia (principal) | CPT/HCPCS: 80053; 82306; 82607; 83036; 83735; 84443; 85025 ==